=== PATIENT | male | born 1990 | race Caucasian/White ===

== ENCOUNTER 2020-09-30 08:25 | Emergency (ER) | payer BC ==
[~2020-09-30] VITALS: Ht 172.7 cm; Wt 90.7 kg
[2020-09-30 08:43] VITALS: BP_SYST 149
[2020-10-01] MEDS ORDERED: NAPR-688 PO (10:22)
[2020-10-01] MEDS ORDERED: CLON1TAB12 PO (10:22)
== END 2020-09-30 10:15 | disposition home or self-care (01) ==
LOC: SED 08:25
DX: S33.5XXA Sprain of ligaments of lumbar spine, initial encounter (principal); X50.3XXA Overexertion from repetitive movements, initial encounter; Y93.89 Activity, other specified; Y92.89 Other specified places as the place of occurrence of the external cause; Y99.8 Other external cause status
CPT/HCPCS: 99281

== ENCOUNTER 2020-10-01 09:44 | Emergency (ER) | payer BC ==
[~2020-10-01] VITALS: Ht 172.7 cm; Wt 90.7 kg
[2020-10-01 09:50] VITALS: BP_SYST 138
[2020-10-01 10:19] VITALS: BP_SYST 138
[2020-10-01] MEDS ORDERED: CLON1TAB12 PO (10:22)
[2020-10-01] MEDS ORDERED: NAPR-688 PO (10:22)
== END 2020-10-01 10:19 | disposition home or self-care (01) ==
LOC: SED 09:44
DX: S40.012A Contusion of left shoulder, initial encounter (principal); R00.2 Palpitations; V49.9XXA Car occupant (driver) (passenger) injured in unspecified traffic accident, initial encounter; Y93.89 Activity, other specified; Y92.413 State road as the place of occurrence of the external cause; Y99.8 Other external cause status
CPT/HCPCS: 99283